=== PATIENT | female | born 1975 | race Caucasian/White ===

== ENCOUNTER 2025-08-20 10:35 | Emergency (ER) | payer SELFPAY ==
[~2025-08-20] VITALS: Ht 157.5 cm; Wt 81.6 kg
[2025-08-20 10:48] VITALS: PULSE 87; RESP 17; TEMP 98.7
[2025-08-20] MEDS: TETANUS/DIPHTHERIA TOX ADULT 0.5 ML SYR IM ONE (11:45)
[2025-08-20] MEDS: CLONIDINE HCL 0.1 MG TAB PO ONE (11:46)
[2025-08-20 12:30] VITALS: BP 178/112; PULSE 87; RESP 20; O2SAT 99
== END 2025-08-20 12:25 | disposition home or self-care (01) ==
LOC: ER 10:40
DX: M25.562 Pain in left knee (principal); S80.212A Abrasion, left knee, initial encounter; S20.212A Contusion of left front wall of thorax, initial encounter; V53.5XXA Driver of pick-up truck or van injured in collision with car, pick-up truck or van in traffic accident, initial encounter; Y92.488 Other paved roadways as the place of occurrence of the external cause; I10 Essential (primary) hypertension
CPT/HCPCS: 90471; 90714; 99283